=== PATIENT | female | born 1985 | race Caucasian/White ===

== ENCOUNTER 2019-05-22 18:44 | Emergency (ER) | payer OTHER, MEDICAID ==
[~2019-05-22] VITALS: Ht 162.6 cm; Wt 52.2 kg
--- NOTE | 2019-05-22 19:11 | NUR ---
PT NOTED VOMITING, DENIES TAKING DRUGS, STATES SHE HAD A SEIZURE AT HALF-WAY. PT PLACED ON SEIZURE PRECAUTION. DR. ELLIS AWARE
--- NOTE | 2019-05-22 19:30 | NUR ---
Pt received in bed sleeping arrousable but lethargic. Pt states that she had seizure. pt is on seizure precaution, padded side rails in place. vss. [employer] at bedside, pt is in custody.
[2019-05-22] MEDS ORDERED: METOCLOPRAMIDE HCL 10 MG/2 ML VIAL ONE (19:49)
[2019-05-22] MEDS: IV NS 0.9% 1,000 ML BAG IV ONE (20:08)
[2019-05-22 20:10] LABS: BASOPHILS % (AUTO) 0.4 % (0.0-2.0); EOSINOPHILS % (AUTO) 0.2 % (0.0-6.0); HEMATOCRIT 45 % (33-45); HEMOGLOBIN 15.2 g/dL (11.5-14.8); LYMPHOCYTES # (AUTO) 1.2 /CMM (0.8-4.8); LYMPHOCYTES % (AUTO) 13.3 % (20.0-44.0); MEAN CORPUSCULAR HGB CONC 34 g/dl (31.0-36.0); MEAN CORPUSCULAR VOLUME 90 fL (82-100); MONOCYTES # (AUTO) 0.7 /CMM (0.1-1.30); MONOCYTES % (AUTO) 8.1 % (2.0-12.0); PLATELET COUNT (AUTO) 150 /CMM (150-450); RED BLOOD CELL COUNT(AUTO) 4.99 MIL/uL (4.0-5.2); WHITE BLOOD COUNT (AUTO) 8.9 K/uL (4.3-11.0)
[2019-05-22] MEDS: METOCLOPRAMIDE HCL 10 MG/2 ML VIAL IV ONE (20:10)
[2019-05-22 20:19] LABS: CALCIUM, SERUM 9.7 mg/dL (8.5-10.1); CARBON DIOXIDE 30 mmol/L (21-32); CHLORIDE 101 mmol/L (98-107); CREATININE 0.7 mg/dL (0.6-1.3); GLUCOSE 89 mg/dL (74-106); POTASSIUM 3.7 mmol/L (3.5-5.1); SODIUM SERUM 139 mmol/L (136-145); UREA NITROGEN, BLOOD 9 mg/dL (7-18)
[2019-05-22 20:36] LABS: ALANINE AMINOTRANSFERASE 36 U/L (12-78); ALBUMIN 3.8 g/dL (3.4-5.0); ALKALINE PHOSPHATASE 95 U/L (46-116); ASPARTATE AMINOTRANSFERASE 16 U/L (15-37); BILIRUBIN,DIRECT 0.1 mg/dL (0.0-0.2); BILIRUBIN,TOTAL 0.5 mg/dL (0.2-1.0); TOTAL PROTEIN, SERUM 8.2 g/dL (6.4-8.2)
[2019-05-22 20:37] LABS: SALICYLATE 0.7 mg/dL (2.8-20.0)
[2019-05-22 20:38] LABS: ACETAMINOPHEN 0 ug/ml (10-30); ALCOHOL, BLOOD < 3 mg/dL (0-0)
[2019-05-22 20:52] LABS: APPEARANCE,URINE Clear (CLEAR); BILIRUBIN,URINE Negative (NEGATIVE); BLOOD, URINE Trace-intact Ery/uL (NEGATIVE); COLOR,URINE Yellow (YELLOW); KETONES,URINE 40 (NEGATIVE); LEUKOCYTE ESTERASE ,URINE Negative (NEGATIVE); NITRITE, URINE Negative (NEGATIVE); PROTEIN,URINE Negative (NEGATIVE); UGLUCOSE Negative (NEGATIVE); UROBILINOGEN,URINE 0.2 EU/dL (0.2)
[2019-05-22] MEDS ORDERED: IV NS 0.9% 250 ML IV ONE (20:58)
[2019-05-22] MEDS ORDERED: CT SWABBABLE VALVE TRANS SET 1 EA INFUS.SET MC ONE (20:58)
[2019-05-22] MEDS ORDERED: IOHEXOL-300 100 ML VIAL IV ONE (20:58)
--- NOTE | 2019-05-22 21:09 | NUR ---
PT TO IN CT ON THOM
[2019-05-22 21:29] LABS: BACTERIA,URINE Few /HPF (None Seen); MUCUS,URINE Few /LPF (None Seen); SQUAMOUS EPITHELIAL CELL,UR Few /HPF (None Seen); WBC,URINE 0-2 /HPF (0-3)
[2019-05-22] MEDS ORDERED: ONDANSETRON HCL/PF 4 MG/2 ML VIAL ONE ×2 (22:02→22:39)
[2019-05-22] MEDS: ONDANSETRON HCL/PF 4 MG/2 ML VIAL IV ONE ×2 (22:05→22:47)
--- NOTE | 2019-05-22 23:03 | NUR ---
PT IS OK TO BE BOOK FOR INCARCERATION. PT IS MEDICALLY CLEARED. PT REALSE TO THE CUSTUDY OF [employer]. PT IN STABLE CONDITION FOR DISCHARGE
[2019-05-22 23:04] VITALS: BP 127/82
== END 2019-05-22 23:00 ==
LOC: ER 18:49
DX: M25.512 Pain in left shoulder (principal); R11.2 Nausea with vomiting, unspecified; R51 Headache; V49.69XA Unspecified car occupant injured in collision with other motor vehicles in traffic accident, initial encounter; Y93.89 Activity, other specified; Y92.413 State road as the place of occurrence of the external cause; Y99.8 Other external cause status
CPT/HCPCS: 36415; 70450; 71260; 72125; 74177; 80048; 80076; 80305; 80307; 80329; 81001; 84703; 85025; 96361; 96374; 96375; 96376; 99284; G0480; J2405 ×2; J2765; J7030; J7050; Q9967; 81000-TC; 87086-TC